=== PATIENT | female | born 1950 | race Caucasian/White ===

== ENCOUNTER → 2017-03-25 | Day surgery (SDC) | payer BC ==
[~2017-03-25] MED LIST: Lactated Ringers 500 ML IV SCH; Propofol 200 MG/20 ML SDV IV ONE
--- NOTE | 2017-03-26 07:30 | OR ---
DATE OF OPERATION: 03/25/2017 PREOPERATIVE DIAGNOSIS: COLON SCREENING, FAMILY HISTORY OF COLON CANCER. POSTOPERATIVE DIAGNOSIS: COLON SCREENING, FAMILY HISTORY OF COLON CANCER. SURGEON: Randolph Kahn MD PROCEDURE: COLONOSCOPY. ANESTHESIA: IV sedation by PI[employer]O INSTRUCTOR. DESCRIPTION OF PROCEDURE: After patient was placed in left lateral position, colonoscope was introduced into anal canal from where it was maneuvered into rectum, then into sigmoid colon, gradually up the descending colon across the splenic flexure into transverse colon, across the hepatic flexure into ascending colon down to cecum. There was no evidence of any tumor mass, any polypoid lesion or any inflammatory process. Multiple photographs were taken. Colonoscope was gradually withdrawn. The patient tolerated the procedure well and left the operating room in satisfactory condition. CONTRERAS/ESTELLA /[id number]
== END ==
LOC: CC.SDS 09:59
PROVIDERS: ATTEND Surgery
DX: Z12.11 Encounter for screening for malignant neoplasm of colon (principal); I10 Essential (primary) hypertension; E55.9 Vitamin D deficiency, unspecified; E78.5 Hyperlipidemia, unspecified; Z80.0 Family history of malignant neoplasm of digestive organs; Z88.1 Allergy status to other antibiotic agents; Z88.2 Allergy status to sulfonamides; Z79.899 Other long term (current) drug therapy; Z87.891 Personal history of nicotine dependence
CPT/HCPCS: 45378; J2704; J7120